=== PATIENT | female | born 1980 | race Caucasian/White ===

== ENCOUNTER 2017-11-15 09:23 | Day surgery (SDC) | payer SELFPAY ==
[2017-11-08 15:26] VITALS: BMI 28.3
[2017-11-15] MEDS ORDERED: LIDOCAINE HCL 1%, 10 MG/ML (20ML VIAL) ONE ×3 (10:28→10:57)
[2017-11-15] MEDS ORDERED: EPINEPHrine 1:1,000 1 MG/1 ML - 30ML VIAL (INJECTION) ONE (10:28)
[2017-11-15] MEDS ORDERED: BACITRACIN 15 GM TUBE TOPICAL OINTMENT ONE ×2 (10:40→13:32)
[2017-11-15] MEDS ORDERED: ROCURONIUM BROMIDE 50 MG/5 ML VIAL ONE ×2 (10:52→12:59)
[2017-11-15] MEDS ORDERED: ONDANSETRON 4 MG/2 ML VIAL ONE (10:52)
[2017-11-15] MEDS ORDERED: PROPOFOL 20 ML ONE (10:52)
[2017-11-15] MEDS ORDERED: DEXAMETHASONE SOD PHOSPHATE 4 MG/1 ML VIAL ONE (10:52)
[2017-11-15] MEDS ORDERED: LIDOCAINE HCL/PF 2% SDV 5ML VIAL ONE (10:52)
[2017-11-15] MEDS ORDERED: fentaNYL CITRATE 250 MCG/5 ML VIAL ONE ×2 (10:52→12:03)
[2017-11-15] MEDS ORDERED: MIDAZOLAM HCL 2 MG/2 ML SINGLE DOSE VIAL ONE (10:52)
[2017-11-15] MEDS ORDERED: DESFLURANE GAS 240 ML BOTTLE IH ONE (10:59)
[2017-11-15] MEDS ORDERED: GUM MASTIC/STORAX/MSAL/ALCOHOL 1 DRP DROPSBTL MC ONE ×2 (12:42→13:26)
[2017-11-15] MEDS ORDERED: NEOSTIGMINE METHYLSULFATE 0.5 MG/ML - 10 ML MDV ONE (15:15)
[2017-11-15] MEDS ORDERED: GLYCOPYRROLATE 0.2 MG/1 ML VIAL ONE (15:15)
[2017-11-15] MEDS ORDERED: PROMETHAZINE HCL 25 MG/1 ML VIAL IVPB PRN (15:30)
[2017-11-15] MEDS ORDERED: oxyCODONE HCL 5 MG TABLET PO PRN ×2 (15:30)
[2017-11-15] MEDS ORDERED: LACTATED RINGERS SOLUTION 1,000 ML IV SCH (15:30)
[2017-11-15] MEDS ORDERED: ONDANSETRON 4 MG/2 ML VIAL IVPUSH PRN (15:30)
[2017-11-15] MEDS ORDERED: ONDANSETRON 4 MG/2 ML VIAL IVPUSH ONE (15:38)
[2017-11-15] MEDS ORDERED: PROMETHAZINE HCL 25 MG/1 ML VIAL IVPUSH ONE (15:40)
[2017-11-15] MEDS ORDERED: oxyCODONE HCL 5 MG TABLET ONE (16:49)
[2017-11-15 17:54] VITALS: BP 147/77; PULSE 98; TEMP 98
== END 2017-11-15 17:54 | disposition home or self-care (01) ==
LOC: FASU 09:23
PROVIDERS: ATTEND Surgery
PROC: 0J0L3ZZ Alteration of Right Upper Leg Subcutaneous Tissue and Fascia, Percutaneous Approach (ICD-10-PCS; 2017-11-15)
PROC: 0J083ZZ Alteration of Abdomen Subcutaneous Tissue and Fascia, Percutaneous Approach (ICD-10-PCS; 2017-11-15)
PROC: 0J0M3ZZ Alteration of Left Upper Leg Subcutaneous Tissue and Fascia, Percutaneous Approach (ICD-10-PCS; principal; 2017-11-15 11:57)
DX: Z41.1 Encounter for cosmetic surgery (principal)
CPT/HCPCS: 84703; 94760